=== PATIENT | female | born 1980 | race Caucasian/White ===

== ENCOUNTER 2023-03-09 03:24 | Inpatient (IN) | payer OTHER ==
[2023-03-09] MEDS: ELECTROLYTE-148 SOLN 1,000 ML IV SCH ×2 (05:00→11:22)
[2023-03-09 05:37] VITALS: BMI 36.7
[2023-03-09 06:18] LABS: BASO % 0.8 % (0-2.0); EOS % 1.6 % (0-4.5); HEMATOCRIT 31.2 % (32.4-45.2); HEMOGLOBIN 9.8 GM/dL (10.7-15.3); LYMPH % 23.8 % (8-40); MCH 25.3 pg (25.7-33.7); MCHC 31.3 g/dl (32.0-36.0); MEAN CELL VOLUME 80.8 fl (80-96); MEAN PLT VOLUME 8.6 fl (7.5-11.1); MONO % 6.6 % (3.8-10.2); NEUT % 67.2 % (42.8-82.8); PLATELET COUNT 282 10^3/uL (134-434); RBC 3.86 M/mm3 (3.60-5.2); RDW 14.7 % (11.6-15.6); WHITE BLOOD COUNT 8.4 K/mm3 (4.0-10.0)
[2023-03-09 06:29] LABS: INR 1.06 (0.83-1.09); PROTHROMBIN TIME (PATIENT) 12.3 SEC (9.7-13.0)
[2023-03-09 06:32] LABS: ACTIVATED PTT 26.2 SECONDS (25.2-36.5)
[2023-03-09 06:35] LABS: POTASSIUM 3.9 mmol/L (3.5-5.1)
[2023-03-09 06:36] LABS: CALCIUM 8.3 mg/dL (8.5-10.1)
[2023-03-09 06:40] LABS: CREATININE 0.6 mg/dL (0.55-1.3)
[2023-03-09] MEDS: CITRIC ACID/SODIUM CITRATE 30 ML UNIT-DOSE CUP PO ONE (11:22)
[2023-03-09] MEDS ORDERED: FENTANYL CITRATE/PF 50 MCG/ML VIAL ONE (11:59)
[2023-03-09] MEDS ORDERED: morphine SULFATE/PF 1 MG/2 ML (2cc Syringe - QUVA) ONE (11:59)
[2023-03-09] MEDS ORDERED: PHENYLEPHRINE HCL 10 MG/1 ML SINGLE DOSE VIAL ONE (12:16)
[2023-03-09] MEDS ORDERED: ceFAZolin SODIUM 1 GM VIAL ONE (12:18)
[2023-03-09] MEDS ORDERED: ONDANSETRON 4 MG/2 ML VIAL ONE (12:19)
[2023-03-09] MEDS ORDERED: DEXAMETHASONE SOD PHOSPHATE 4 MG/1 ML VIAL ONE (12:32)
[2023-03-09] MEDS ORDERED: METOCLOPRAMIDE HCL INJECTION 10 MG/2 ML VIAL ONE (12:32)
[2023-03-09] MEDS ORDERED: OXYTOCIN 10 UNITS/ML VIAL ONE (12:38)
[2023-03-09 13:21] LABS: HIV INTERPRETATION NEGATIVE (NEGATIVE)
[2023-03-09] MEDS ORDERED: KETOROLAC TROMETHAMINE 30 MG/1 ML VIAL ONE (13:22)
[2023-03-09 13:31] LABS: CORD BASE EXCESS -3.8 mmol/L (0-2); CORD HCO3 21.3 mmHg (20-29); CORD pH 7.356 (7.14-7.44)
[2023-03-09] MEDS ORDERED: ACETAMINOPHEN 325 MG TABLET (FP) PO PRN (13:36)
[2023-03-09] MEDS ORDERED: SIMETHICONE 80 MG TAB.CHEW (FP) PO PRN (13:36)
[2023-03-09] MEDS ORDERED: BENZOCAINE 28 GM HEMORRHOIDAL OINTMENT TP PRN (13:36)
[2023-03-09] MEDS ORDERED: SENNOSIDES/DOCUSATE COMBO (SENNA PLUS) TABLET (UD) PO PRN (13:36)
[2023-03-09] MEDS ORDERED: BENZOCAINE 20% 57 GM BOTTLE TP PRN (13:36)
[2023-03-09] MEDS ORDERED: WITCH HAZEL 50% (TUCKS) 40 PAD/JAR PAD TP PRN (13:36)
[2023-03-09] MEDS ORDERED: IBUPROFEN 800 MG/8 ML IJ IVPB PRN (13:36)
[2023-03-09] MEDS ORDERED: METHYLERGONOVINE MALEATE 0.2 MG/1 ML AMP IM PRN (13:36)
[2023-03-09 13:37] LABS: CORD HCO3 22.9 mmHg (20-29); CORD PCO2 48.9 mmHg (30-78); CORD pH 7.288 (7.14-7.44)
[2023-03-09] MEDS: OXYTOCIN 20 UNITS in 0.9% NS 20 UNIT/1,000 ML INFUS.BAG IV SCH (13:45)
[2023-03-09 14:23] LABS: POC NITRAZINE POS
[2023-03-09] MEDS ORDERED: OXYTOCIN 20 UNITS in 0.9% NS 20 UNIT/1,000 ML INFUS.BAG IV ONE (15:33)
[2023-03-09] MEDS: ONDANSETRON 4 MG/2 ML VIAL IVPUSH PRN (19:13)
[2023-03-09] MEDS: morphine SULFATE/PF 1 MG/2 ML (2cc Syringe - QUVA) IT ONE (20:38)
[2023-03-10] MEDS ORDERED: oxyCODONE HCL 5 MG TABLET PO PRN ×2 (01:37)
[2023-03-10 08:36] LABS: BASO % 0.5 % (0-2.0); EOS % 0.6 % (0-4.5); HEMATOCRIT 27.5 % (32.4-45.2); HEMOGLOBIN 8.6 GM/dL (10.7-15.3); MCH 25.1 pg (25.7-33.7); MCHC 31.3 g/dl (32.0-36.0); MEAN CELL VOLUME 80.3 fl (80-96); MONO % 7.6 % (3.8-10.2); NEUT % 74.3 % (42.8-82.8); PLATELET COUNT 260 10^3/uL (134-434); RBC 3.42 M/mm3 (3.60-5.2); RDW 14.6 % (11.6-15.6)
[2023-03-10] MEDS: IBUPROFEN 600 MG TABLET (FP) PO PRN (09:21)
[2023-03-10] MEDS: PRENATAL VITAMINS W/ FOLIC ACID TABLET (FP) PO SCH (09:21)
[2023-03-10] MEDS ORDERED: BISACODYL 10 MG SUPP.RECT RC PRN (13:37)
[2023-03-11 18:09] VITALS: RESP 18
[2023-03-12 08:19] LABS: BASO % 0.6 % (0-2.0); HEMATOCRIT 27.7 % (32.4-45.2); HEMOGLOBIN 8.6 GM/dL (10.7-15.3); MCH 24.9 pg (25.7-33.7); MCHC 31.2 g/dl (32.0-36.0); MEAN CELL VOLUME 79.9 fl (80-96); MEAN PLT VOLUME 7.8 fl (7.5-11.1); MONO % 6.3 % (3.8-10.2); NEUT % 70.1 % (42.8-82.8); PLATELET COUNT 305 10^3/uL (134-434); RBC 3.47 M/mm3 (3.60-5.2); RDW 15.5 % (11.6-15.6); WHITE BLOOD COUNT 8.7 K/mm3 (4.0-10.0)
[2023-03-12 11:17] VITALS: BP 140/82; PULSE 86; TEMP 98
== END 2023-03-12 13:00 | disposition home or self-care (01) | DRG 540 ==
LOC: JDEL 03:24 → JLDR 04:00 → J3W 16:05
PROVIDERS: ADMIT Obstetrics & Gynecology; ATTEND Obstetrics & Gynecology
PROC: 10D00Z1 Extraction of Products of Conception, Low, Open Approach (ICD-10-PCS; principal; 2023-03-09)
DX: O34.219 Maternal care for unspecified type scar from previous cesarean delivery (principal); O42.02 Full-term premature rupture of membranes, onset of labor within 24 hours of rupture; O24.420 Gestational diabetes mellitus in childbirth, diet controlled; O69.81X0 Labor and delivery complicated by cord around neck, without compression, not applicable or unspecified; Z3A.39 39 weeks gestation of pregnancy; Z37.0 Single live birth
CPT/HCPCS: 36415; 36600; 80048; 82803; 82962; 83986-QW; 85025; 85610; 85730; 86780; 86850; 86900; 86901; 86922; 87389; 88307-TC